=== PATIENT | female | born 1960 | race Two or more races ===

== ENCOUNTER 2020-05-14 18:40 | Emergency (ER) | payer MEDICAID, MEDICARE, OTHER ==
[2020-05-14] MEDS ORDERED: Sodium Chloride 0.9% 1,000 ML IV ONE (19:11)
[2020-05-14] MEDS ORDERED: Ondansetron 4 MG/2 ML SDV IVPUSH ONE ×2 (19:11→20:14)
[2020-05-14] MEDS ORDERED: Sodium Chloride 0.9% 10 ML Syringe FLUSH PRN (19:11)
--- NOTE | 2020-05-14 19:40 | EDM.PDOC ---
ED HPI GENERAL MEDICAL PROBLEM - General Chief Complaint: General Stated Complaint: UTI??? Time Seen by Provider: 05/14/20 19:17 - History of Present Illness INITIAL COMMENTS - FREE TEXT/NARRATIVE: Presents with spouse for RUQ abd pain starting this am. She notes having breakfast and vomiting after she ate, she tried again at 1300 with a boiled egg. She has constant RUQ abdomen, starting when she woke up. She notes having dark urine and dysuria as well, despite drinking lots of water today and keeping that down. Hx of fatty liver disease (nonalcoholic). She rates her pain sharp, no radiation 03/26. She did not take anything for the pain. She has had overall back discomfort for one day. Lower Abdomen Pain Score (Numeric/FACES): 7 - Related Data Allergies Allergy/AdvReac Type Severity Reaction Status Date / Time No Known Drug Allergies Allergy Cannot Verified 05/14/20 18:53 Remember Home Meds: Home Meds Ciprofloxacin HCl [Cipro] 500 mg PO BID 10 Days #20 tablet 05/14/20 [Rx] Esomeprazole Magnesium 40 mg PO DAILY 05/14/20 [History] Ezetimibe [Zetia] 10 mg PO DAILY 05/14/20 [History] Insulin Glargine,Hum.Rec.Anlog [Toujeo Solostar] 70 unit SQ BID 05/14/20 [History] Levothyroxine [Synthroid] 88 mcg PO ACBREAKFAST 05/14/20 [History] Metoprolol Succinate 50 mg PO BID 05/14/20 [History] Mirabegron [Myrbetriq] 50 mg PO DAILY 05/14/20 [History] atorvaSTATin [Lipitor] 20 mg PO DAILY 05/14/20 [History] glipiZIDE [Glucotrol XL] 5 mg PO TID 05/14/20 [History] Social & Family History - Tobacco Use Smoking Status *Q: Never Smoker Second Hand Smoke Exposure: Yes - Caffeine Use Caffeine Use: Reports: Coffee, Soda - Recreational Drug Use Recreational Drug Use: No ED ROS GENERAL - Review of Systems Review Of Systems: See Below Constitutional: Reports: No Symptoms. Denies: Fever, Chills, Malaise, Weakness HEENT: Reports: No Symptoms Respiratory: Reports: No Symptoms. Denies: Shortness of Breath, Wheezing, Cough Cardiovascular: Reports: No Symptoms. Denies: Chest Pain Endocrine: Reports: No Symptoms GI/Abdominal: Reports: Abdominal Pain, Nausea, Vomiting. Denies: Black Stool, Bloody Stool, Constipation, Diarrhea, Distension, Hematemesis, Hematochezia, Melena, Mucous in Stool : Reports: Other (dark urine). Denies: Dysuria, Flank Pain, Frequency, Urgency Musculoskeletal: Reports: No Symptoms Skin: Reports: No Symptoms. Denies: Diaphoresis, Rash Neurological: Reports: No Symptoms. Denies: Headache Hematologic/Lymphatic: Reports: No Symptoms ED EXAM, GENERAL - Physical Exam Exam: See Below Exam Limited By: No Limitations General Appearance: Alert, WD/WN, No Apparent Distress Nose: Normal Inspection Throat/Mouth: Normal Inspection, Normal Lips, Normal Gums Head: Atraumatic, Normocephalic Neck: Normal Inspection, Supple, Non-Tender, Full Range of Motion Respiratory/Chest: No Respiratory Distress, Lungs Clear, Normal Breath Sounds Cardiovascular: Normal Peripheral Pulses, Regular Rate, Rhythm, No Edema, No Murmur GI/Abdominal: Normal Bowel Sounds, Soft, No Organomegaly, No Distention, Tender (positive savage's sign, no peritonitis symptoms , neg. mcbur[place] point or rovigs sign. ), Other. No: No Mass, Guarding Back Exam: Normal Inspection, Full Range of Motion. No: CVA Tenderness (L), CVA Tenderness (R) Extremities: Normal Inspection, Normal Range of Motion, Non-Tender, No Pedal Edema, Normal Capillary Refill Neurological: Alert, Oriented, Normal Gait Skin Exam: Warm, Dry, Intact Course - Vital Signs Last Recorded V/S: Last Vital Signs Temp 99.7 F 05/14/20 18:47 Pulse 114 H 05/14/20 18:47 Resp 18 05/14/20 18:47 BP 128/72 05/14/20 18:47 Pulse Ox 95 05/14/20 18:47 - Orders/Labs/Meds Orders: Active Orders 24 hr Category Date Time Status Peripheral IV Care [RC] . DIRECTED Care 05/14/20 19:12 Active Abdomen Pelvis w Cont [CT] Stat Exams 05/14/20 20:02 Ordered CULTURE URINE [RM] Stat Lab 05/14/20 19:10 Received Ciprofloxacin in D5W [Cipro in D5W 400 MG/200 ML] 400 Med 05/14/20 21:18 Ordered mg Premix Bag 1 bag IV ONETIME Sodium Chloride 0.9% [Saline Flush] Med 05/14/20 19:11 Active 10 ml FLUSH Q8HR PRN Peripheral IV Insertion Adult [OM.PC] Routine Oth 05/14/20 19:11 Ordered Medication Orders Ciprofloxacin/Dextrose 400 mg/ (Premix) 200 mls @ 200 mls/hr IV ONETIME ONE Stop: 05/14/20 22:17 Last Admin: 05/14/20 21:29 Dose: 200 mls/hr Documented by: Sodium Chloride (Saline Flush) 10 ml FLUSH Q8HR PRN PRN Reason: keep vein open Labs: Laboratory Tests 05/14/20 05/14/20 05/14/20 Range/Units 19:10 19:20 19:20 WBC 11.45 H (5.00-10.00) 10^3/uL RBC 4.74 (3.80-5.50) 10^6/uL Hgb 13.0 (12.0-16.0) g/dL Hct 38.6 (37.0-47.0) % MCV 81.4 L (82.0-92.0) fL MCH 27.4 (27.0-31.0) pg MCHC 33.7 (32.0-36.0) g/dL RDW 14.3 (11.5-14.5) % Plt Count 162 (150-400) 10^3/uL MPV 11.4 H (7.4-10.4) fL Immature Gran % (Auto) 0.3 (0.0-5.0) % Neut % (Auto) 83.3 H (50.0-70.0) % Lymph % (Auto) 7.2 L (20.0-40.0) % [place] % (Auto) 8.9 H (2.0-8.0) % Eos % (Auto) 0.0 L (1.0-3.0) % Baso % (Auto) 0.3 (0.0-1.0) % Neut # (Auto) 9.55 H (2.50-7.00) 10^3/uL Lymph # (Auto) 0.82 L (1.00-4.00) 10^3/uL [place] # (Auto) 1.02 H (0.10-0.80) 10^3/uL Eos # (Auto) 0.00 L (0.10-0.30) 10^3/uL Baso # (Auto) 0.03 (0.00-0.10) 10^3/uL Immature Gran # (Auto) 0.03 (0.00-0.50) 10^3/uL Sodium 131 L (136-145) mmol/L Potassium 3.8 (3.3-5.3) mmol/L Chloride 94 L (98-115) mmol/L Carbon Dioxide 24.3 (21.0-32.0) mmol/L Anion Gap 16.5 H (5-15) mmol/L BUN 18 (6-25) mg/dL Creatinine 0.73 (0.51-1.17) mg/dL Est Cr Clr Drug Dosing 63.20 mL/min Estimated GFR (MDRD) > 60 mL/min Glucose 326 H (75 - 99) mg/dL Calcium 9.4 (8.7-10.3) mg/dL Total Bilirubin 1.9 H (0.2-1.0) mg/dL AST 27 (15-37) U/L ALT 47 (12-78) U/L Alkaline Phosphatase 144 H (46-116) IU/L C-Reactive Protein 28.5 H (0.0-0.9) mg/dL Total Protein 8.0 (6.4-8.2) g/dL Albumin 3.34 (3.00-4.80) g/dL Lipase (73-393) U/L TSH, Ultra Sensitive (0.340-4.820) uIU/mL Specimen Type Urincc Urine Color Yellow (YELLOW) Urine Appearance Slightly cloudy H (CLEAR) Urine pH 5.5 (5.0-9.0) Ur Specific [place] 1.015 (1.005-1.030) Urine Protein 100 H (NEGATIVE) mg/dL Urine Glucose (UA) >=1000 H (NEGATIVE) mg/dL Urine Ketones Negative (NEGATIVE) mg/dL Urine Occult Blood Moderate H (NEGATIVE) Urine Nitrite Negative (NEGATIVE) Urine Bilirubin Negative (NEGATIVE) Urine Urobilinogen 1.0 (0.2-1.0) E.U./dL Ur Leukocyte Esterase Negative (NEGATIVE) Urine RBC 5-10 H (0-5) /HPF Urine WBC >100 H (0-5) /HPF Ur Epithelial Cells Few /LPF Urine Bacteria Many H (NONE TO FEW) /HPF 05/14/20 Range/Units 19:20 WBC (5.00-10.00) 10^3/uL RBC (3.80-5.50) 10^6/uL Hgb (12.0-16.0) g/dL Hct (37.0-47.0) % MCV (82.0-92.0) fL MCH (27.0-31.0) pg MCHC (32.0-36.0) g/dL RDW (11.5-14.5) % Plt Count (150-400) 10^3/uL MPV (7.4-10.4) fL Immature Gran % (Auto) (0.0-5.0) % Neut % (Auto) (50.0-70.0) % Lymph % (Auto) (20.0-40.0) % [place] % (Auto) (2.0-8.0) % Eos % (Auto) (1.0-3.0) % Baso % (Auto) (0.0-1.0) % Neut # (Auto) (2.50-7.00) 10^3/uL Lymph # (Auto) (1.00-4.00) 10^3/uL [place] # (Auto) (0.10-0.80) 10^3/uL Eos # (Auto) (0.10-0.30) 10^3/uL Baso # (Auto) (0.00-0.10) 10^3/uL Immature Gran # (Auto) (0.00-0.50) 10^3/uL Sodium (136-145) mmol/L Potassium (3.3-5.3) mmol/L Chloride (98-115) mmol/L Carbon Dioxide (21.0-32.0) mmol/L Anion Gap (5-15) mmol/L BUN (6-25) mg/dL Creatinine (0.51-1.17) mg/dL Est Cr Clr Drug Dosing mL/min Estimated GFR (MDRD) mL/min Glucose (75 - 99) mg/dL Calcium (8.7-10.3) mg/dL Total Bilirubin (0.2-1.0) mg/dL AST (15-37) U/L ALT (12-78) U/L Alkaline Phosphatase (46-116) IU/L C-Reactive Protein (0.0-0.9) mg/dL Total Protein (6.4-8.2) g/dL Albumin (3.00-4.80) g/dL Lipase 103 (73-393) U/L TSH, Ultra Sensitive 0.320 L (0.340-4.820) uIU/mL Specimen Type Urine Color (YELLOW) Urine Appearance (CLEAR) Urine pH (5.0-9.0) Ur Specific [place] (1.005-1.030) Urine Protein (NEGATIVE) mg/dL Urine Glucose (UA) (NEGATIVE) mg/dL Urine Ketones (NEGATIVE) mg/dL Urine Occult Blood (NEGATIVE) Urine Nitrite (NEGATIVE) Urine Bilirubin (NEGATIVE) Urine Urobilinogen (0.2-1.0) E.U./dL Ur Leukocyte Esterase (NEGATIVE) Urine RBC (0-5) /HPF Urine WBC (0-5) /HPF Ur Epithelial Cells /LPF Urine Bacteria (NONE TO FEW) /HPF Meds: Medications Generic Name Dose Route Start Last Admin Trade Name Freq PRN Reason Stop Dose Admin Ciprofloxacin/Dextrose 400 mg/ 200 mls @ 200 mls/hr 05/14/20 21:18 05/14/20 21:29 Premix IV 05/14/20 22:17 200 mls/hr ONETIME ONE Administration Sodium Chloride 10 ml 05/14/20 19:11 Saline Flush FLUSH Q8HR PRN keep vein open Discontinued Medications Generic Name Dose Route Start Last Admin Trade Name Freq PRN Reason Stop Dose Admin Sodium Chloride 1,000 mls @ 999 mls/hr 05/14/20 19:11 05/14/20 19:24 Normal Saline IV 05/14/20 20:11 999 mls/hr .BOLUS ONE Administration Morphine Sulfate 2 mg 05/14/20 20:05 05/14/20 20:10 Morphine IVPUSH 05/14/20 20:06 2 mg ONETIME ONE Administration Morphine Sulfate Confirm 05/14/20 20:07 05/14/20 20:11 Morphine Administered 05/14/20 20:08 Not Given Dose 2 mg .ROUTE .STK-MED ONE Ondansetron HCl 4 mg 05/14/20 19:11 05/14/20 19:24 Zofran IVPUSH 05/14/20 19:12 4 mg ONETIME ONE Administration Ondansetron HCl 4 mg 05/14/20 20:14 05/14/20 20:14 Zofran IVPUSH 05/14/20 20:15 4 mg ONETIME ONE Administration Ondansetron HCl Confirm 05/14/20 20:13 05/14/20 20:15 Zofran Administered 05/14/20 20:14 Not Given Dose 4 mg .ROUTE .STK-MED ONE - Re-Assessments/Exams Free Text/Narrative Re-Assessment/Exam: 05/14/20 21:[address] and exam both consistent with pyelonephritis. patient given one dose of abx here, no vomiting during entire stay. oral cipro start tomorrow in the am. i offered the patient to spend the night here, for pain control fluids and iv abx, however patient strongly insisted to go home, which I am comfortable with that, she has no fever, rechecked temp 99.0 F, she has no tachycardia pulse 82 bpm at d/c, she did have during triage that was during her acute pain, dose of morphine ,she is pain free, zofran controlled nausea as well, she drank few glasses of water while here and tolerated that, she does have slight elevation in WBC, elevated CRP, positive UA, she has no CVA tenderness, her pain was referred to the front, very tender RUQ, gallbladder not documented on CT, US is best, therefore importance of f/u with clinic on sunday for close f/u and address her gallbladder. she notes her thyroid has not been controlled, TSH is low, she has no PCP here until may then goes back to [place], thus again she has a few things she will address in the clinic. return precautions discussed with both patient and spouse, low threshold on returning to ED, both verbalized clear understanding. Discussed low fat mild diet, avoid large meals and greasy meals, she notes having a bunch of large meals yesterday. 05/14/20 21:36 05/14/20 21:41 Departure - Departure Time of Disposition: 21:20 Disposition: Home, Self-Care 01 Condition: Good Clinical Impression: Pyelonephritis - Discharge Information *PRESCRIPTION DRUG MONITORING PROGRAM REVIEWED*: No *COPY OF PRESCRIPTION DRUG MONITORING REPORT IN PATIENT BILL: No Prescriptions: Ciprofloxacin HCl [Cipro] 500 mg PO BID 10 Days #20 tablet Referrals: PCP,Not In Area [Primary Care Provider] - Forms: ED Department Discharge Additional Instructions: if you are unable to keep medicine down, or feel any worse tonight or tomorrow, please return to ER immediately. Sepsis Event Note (ED) - Evaluation Sepsis Screening Result: No Definite Risk - Focused Exam Vital Signs: Vital Signs Temp Pulse Resp BP Pulse Ox 05/14/20 18:47 99.7 F 114 H 18 128/72 95 - My Orders Last 24 Hours: My Active Orders 05/14/20 19:10 CULTURE URINE [RM] Stat 05/14/20 19:11 Sodium Chloride 0.9% [Saline Flush] 10 ml FLUSH Q8HR PRN Peripheral IV Insertion Adult [OM.PC] Routine 05/14/20 19:12 Peripheral IV Care [RC] . DIRECTED 05/14/20 20:02 Abdomen Pelvis w Cont [CT] Stat 05/14/20 21:18 Ciprofloxacin in D5W [Cipro in D5W 400 MG/200 ML] 400 mg Premix Bag 1 bag IV ONETIME - Assessment/Plan Last 24 Hours: My Active Orders 05/14/20 19:10 CULTURE URINE [RM] Stat 05/14/20 19:11 Sodium Chloride 0.9% [Saline Flush] 10 ml FLUSH Q8HR PRN Peripheral IV Insertion Adult [OM.PC] Routine 05/14/20 19:12 Peripheral IV Care [RC] . DIRECTED 05/14/20 20:02 Abdomen Pelvis w Cont [CT] Stat 05/14/20 21:18 Ciprofloxacin in D5W [Cipro in D5W 400 MG/200 ML] 400 mg Premix Bag 1 bag IV ONETIME
[2020-05-14 20:01] LABS: ANION GAP 16.5 mmol/L (5-15); CHLORIDE,CL 94 mmol/L (98-115); SODIUM,NA 131 mmol/L (136-145)
[2020-05-14] MEDS ORDERED: Morphine 2 MG/ML SYRINGE IVPUSH ONE (20:05)
[2020-05-14] MEDS ORDERED: Morphine 2 MG/ML SYRINGE ONE (20:07)
[2020-05-14] MEDS ORDERED: Ondansetron 4 MG/2 ML SDV ONE (20:13)
[2020-05-14] MEDS ORDERED: Ciprofloxacin in D5W 400 MG in Premix Bag 1 BAG IV ONE ×2 (21:18)
--- NOTE | 2020-05-15 09:20 | CT ---
[id number] CT/CT Abdomen Pelvis W IV EXAM: CT Abdomen Pelvis W IV CLINICAL DATA: ABDOMINAL PAIN COMPARISON: NO PREVIOUS SIMILAR EXAM IS AVAILABLE. FINDINGS: Interstitial changes are seen at the lung bases The liver and spleen, aorta, adrenals, pancreas, and left kidney are unremarkable There is enlargement of the right kidney There is no hydronephrosis The appendix is normal The gallbladder is unremarkable The pelvis shows no mass or adenopathy The uterus is prominent for age The endometrium is prominent for age IMPRESSION: RIGHT-SIDED PYELONEPHRITIS SUSPECTED ABNORMAL APPEARANCE OF UTERUS FEDERAL MEDIATOR OPINION WOULD BE HELPFUL Sky Coles MD 05/15/20 0919 Thank you for allowing us to participate in the care of your patient.
== END 2020-05-14 22:44 | disposition home or self-care (01) ==
LOC: KA.ED 18:40
DX: N12 Tubulo-interstitial nephritis, not specified as acute or chronic (principal); Z77.22 Contact with and (suspected) exposure to environmental tobacco smoke (acute) (chronic); Z79.899 Other long term (current) drug therapy
CPT/HCPCS: 74177; 80053; 81001; 83690; 84443; 85025; 86140; 87086; 96361; 96365; 96375; 96376; 99284; J0744; J2270; J2405; J7030; 87077; 87088; 87186